=== PATIENT | female | born 1955 | race Caucasian/White ===

== ENCOUNTER → 2024-03-21 11:21 | Outpatient (CLI) | payer MEDICARE, SELFPAY ==
--- NOTE | 2024-03-21 11:37 | DI.CT.S_ITS ---
PROCEDURE: CT SOFT TISSUE NECK W CON INDICATIONS: TONGUE MASS, TONGUE PAIN TECHNIQUE: After the administration of intravenous contrast, 3.0 mm axial sections acquired from the sella to the aortic arch. Additional oblique axial 3.0 mm sections acquired through the pharynx. 3 mm thick coronal and sagittal reformats were generated. For radiation dose reduction, the following was used: automated exposure control. COMPARISON: None. FINDINGS: Image quality: Excellent. Lymph nodes: No enlarged lymph nodes seen throughout the neck. Vessels: Visualized vasculature appears patent. Neck spaces: There is mild asymmetric fullness in the right base of tongue. Within the central portion there is a 6 mm focus of calcification with a smaller adjacent calcification measuring approximately 4 mm. Questionable slight fullness at the inferior most aspect of the left lateral base of tongue. No discrete mass. Glands: The parotid and submandibular glands appear normal. Thyroid gland is unremarkable. Miscellaneous: Visualized brain and orbits appear normal. Lung apices appear clear. Superficial soft tissues appear normal. 1.0 cm right paratracheal/esophageal lymph node series 2, image 65. Bones: No suspicious bony lesions. Visualized sinuses and mastoids appear unremarkable. IMPRESSION: Slight soft tissue asymmetric fullness at the right base of tongue with central calcification. This does not appear to be sialoadenitis as there is no ductal dilation. Etiology is uncertain on the basis of this exam and no priors are available for comparison. In addition, very subtle questionable appearance of fullness within the left base of tongue at the inferior most aspect. No discrete mass. No adenopathy. Findings could be related to infection or inflammation. Short interval imaging and direct visualization follow-up is recommended. Dictated by: Elaine Mitchell M.D. on 03/21/2024 at 14:07 Approved by: Elaine Mitchell M.D. on 03/21/2024 at 14:23
== END ==
PROVIDERS: PCP Physician Assistant; Referring Provider Otolaryngology; Visit Provider Otolaryngology
DX: K14.8 Other diseases of tongue; K14.6 Glossodynia
CPT/HCPCS: 70491; Q9967